=== PATIENT | male | born 1940 | race Caucasian/White ===

== ENCOUNTER 2024-12-08 12:43 | Emergency (ER) | payer MEDICARE, BC, SELFPAY ==
[2024-12-08 12:52] VITALS: BP 169/67
--- NOTE | 2024-12-08 13:26 | ED.GENMED ---
History of Present Illness
General
Chief Complaint: Head Injury
Source: patient and family
Time Seen by Provider: 12/08/24 13:08
History of Present Illness
History of Present Illness:
84-year-old male presenting to the emergency department for evaluation at the request of primary care provider for evaluation after he sustained a head injury this past Saturday morning when he excellently fell coming out of the bathroom sustaining
laceration to the top of the scalp and left forehead contusion. There was no reported loss of consciousness, vomiting, vision changes, extremity related injury or any other concerns. Patient was advised to come to the ER for further evaluation of
the wound and imaging. Also of note, patient started with flulike symptoms yesterday, is known to be flu positive and patient tested positive for the flu at primary care provider today. Patient notes that his only symptom right now is some
mild bodyaches and a sore throat.
Past History
Past History
ED Past Medical History: Other (benign prostatic hypertrophy)
ED Past Surgical History: Other (Hernia surgery)
Social History
Tobacco: Non-smoker
Alcohol: None
Drug: None
Personal:
Living: with family
Employment: Retired
Review of Systems
Review of Systems
All Other Systems: ROS reviewed and negative except as documented in HPI and ROS
Phy Exam
Physical Exam
Physical Exam:
GENERAL: Alert , in no apparent distress
EYE: conjunctiva clear
Head: dried blood over the scalp with a jagged 1-1/2 cm laceration that is scabbed over without any active bleeding overlying the mid occiput
NECK: Supple, no midline tenderness
ENT: mmm.
LUNGS: no acute respiratory distress
NEUROLOGICAL: Alert and oriented
SKIN: Warm and dry, skin intact.
MUSCULOSKELETAL: well perfused. Moves all extremities
PSYCH: Normal and appropriate interaction.
Scores
Heart Failure Risk
Heart Failure Risk Score: Not Applicable
Heart Score for Chest Pain Patients
STEMI patient?: Not applicable
Withdrawal Assessment of Alcohol
Withdrawal Assessment Completed?: Not applicable
Course
Orders/Labs/Results
Orders:
Orders
12/08/24 12:50
CT Head W/o Iv Contrast Urgent
Comment:
Reason For Exam: fall with head injury
Cervical Spine wo Contrast CT [CT Cervical Spine W/o Iv Contr] Urgent
Comment:
Reason For Exam: fall with head injury
Vital Signs
Initial and Last Documented VS:
Initial Vital Signs
Temp Pulse Resp BP Pulse Ox
99.4 F 74 18 169/67 99
12/08/24 12:52 12/08/24 12:52 12/08/24 12:52 12/08/24 12:52 12/08/24 12:52
Last Documented Vital Signs
Temp Pulse Resp BP Pulse Ox
99.4 F 74 18 169/67 99
12/08/24 12:52 12/08/24 12:52 12/08/24 12:52 12/08/24 12:52 12/08/24 12:52
MDM/Problems Addressed
Differential Diagnosis Includes:
Superficial head injury, intracranial bleeding, calvarial fracture, known flu positive
MDM/Problems Addressed:
84-year-old male presenting to the ER for evaluation at the request of primary care provider for head injury sustained Saturday. Laceration is currently scabbed over and without any signs of infection. Wound was irrigated with normal saline.
Discussed risk first benefit of debriding the scab and opening the wound to place agus however patient stated because the wound is currently scabbed over and without any bleeding he would opt to leave the scab currently intact. Patient is
unsure of his last tetanus but is declining his tetanus updated here. A CT of the head and cervical spine was ordered. Patient requesting Tamiflu for his diagnosed flu which is reasonable given symptoms started within the last 48 hours.
Anticipate discharge home following CT reports.
*Radiology
Radiology exam reviewed: radiology read reviewed
*Pulse Oximetry
Patient hypoxic: no
*Critical Care Note
Total Time (30-74mins, 75-104mins- exclusive of procedures): Not Applicable
Patient Management
Escalation/DeEscalation of care consider admission/obs:
CT negative for any acute pathology. Tamiflu sent to pharmacy. Patient stable for discharge home. Family aware of return precautions.
ED Attending Note
-
Portions of this chart may have been created with voice recognition software.� Occasional wrong word or��sound alike� substitutions may have occurred due to the inherent limitations of voice recognition software.
Discharge Plan
Departure
Patient Disposition: Home (Routine Discharge)
Date of Disposition: 12/08/24
Time of Disposition: 13:52
Patient with high blood pressure during this ER visit?: Yes
Discharge Problem:
Accidental fall, Head injury, Influenza A
Instructions: Head Injury in Adults (DC)
Prescriptions:
New
oseltamivir [Tamiflu] 75 mg capsule
75 mg PO BID 5 Days Qty: 10 0RF
No Action
tamsulosin 0.4 MG capsule
0.4 mg PO DAILY Qty: 10 0RF
Referrals:
Hardeep Lemos I., DO [Family Provider] -
Interventions
Interventions:
*Risk Screen - Suicide Last Done: 12/08/24 15:09
*General Assessment Last Done: 12/08/24 15:09
*Neglect/Abuse Screening Last Done: 12/08/24 15:09
ED- Fall Risk Assessment Last Done: 12/08/24 15:09
*ED COVID-19 Vaccine History Last Done: 12/08/24 12:52
*Nursing Disposition Last Done: 12/08/24 15:09
ED- Neurological Assessment Last Done: 12/08/24 15:08
ED-Skin Assessment Last Done: 12/08/24 15:08
Discharge Date and Time
Discharge Date/Time: 12/08/24 15:10
Print Language: CHADIAN
== END 2024-12-08 15:10 | disposition home or self-care (01) ==
LOC: EMR 12:43
PROVIDERS: EMERGENCY PHYSICIAN Emergency Medicine; FAMILY PHYSICIAN Internal Medicine
DX: J10.1 Influenza due to other identified influenza virus with other respiratory manifestations (principal); S01.01XA Laceration without foreign body of scalp, initial encounter; S00.83XA Contusion of other part of head, initial encounter; W19.XXXA Unspecified fall, initial encounter; N40.0 Benign prostatic hyperplasia without lower urinary tract symptoms
CPT/HCPCS: 99284; 70450; 72125